=== PATIENT | male | born 1985 | race American Indian/Alaskan Native ===

== ENCOUNTER 2017-07-06 11:54 | Inpatient (IN) | payer MEDICAID ==
[2017-07-06 13:56] LABS: Hematocrit 42.3 % (35.5-45.6); Hemoglobin 13.9 gm/dl (11.8-15.2); Mean Corpuscular HGB Conc 33 % (32-34); Mean Corpuscular Hemoglobin 29 pg (28-32); Mean Corpuscular Volume 89 fl (84-94); Platelet Count 193 K/mm3 (140-440); Red Blood Count 4.74 M/mm3 (3.65-5.03); Red Cell Distribution Width 13.1 % (13.2-15.2)
[2017-07-06 14:04] LABS: White Blood Count 1.8 K/mm3 (4.5-11.0)
[2017-07-06 14:06] LABS: Anion Gap 18 mmol/L; BUN/Creatinine Ratio 13.07; Blood Urea Nitrogen 17 mg/dL (9-20); Calcium 8.5 mg/dL (8.4-10.2); Carbon Dioxide 26 mmol/L (22-30); Chloride 102.7 mmol/L (98-107); Creatine Kinase 65 units/L (55-170); Glucose 77 mg/dL (75-100); Potassium 4.6 mmol/L (3.6-5.0); Sodium 142 mmol/L (137-145)
[2017-07-06 14:54] LABS: Basophils % (Manual) 0 % (0.0-1.8); Blastocytes % (Manual) 0 %
[2017-07-06 14:55] LABS: Diff Status Complete; RBC Morphology Normal
--- NOTE | 2017-07-06 15:38 | XRay Report ---
Bilateral tib/fib: Swelling. Routine views demonstrate mild subcutaneous swelling of the posterior calf and distal leg bilaterally. Soft tissues are not otherwise remarkable. The bones and joints are unremarkable Impression: Nonspecific bilateral mild leg edema.
--- NOTE | 2017-07-06 16:25 | History and Physical Report ---
History of Present Illness Chief complaint: My leg is red History of present illness: 32 YO Male with AIDS, HTN, Bipolar, Anxiety, Depression, presents to ED for evaluation. Pt states that he has experienced worsening swelling and redness to both legs for the past 4 days with worsening pain over the past 12 hours. Pt denies fever, chills, CP, Palpitations, NVD, syncope, recent ill contacts, medication noncompliance, prolonged immobility/travel, individual/family history of DVT/PE. Past History Past Medical History: HIV/AIDS, hypertension Past Surgical History: No surgical history, Other (reviewed) Social history: single. denies: smoking, alcohol abuse, prescription drug abuse , IV drug use Family history: hypertension Medications and Allergies Allergies Allergy/AdvReac Type Severity Reaction Status Date / Time No Known Allergies Allergy Verified 07/06/17 12:35 Review of Systems Constitutional: no weight loss, no weight gain, no sweats, no night sweats Ears, nose, mouth and throat: no deferred, no ear pain Cardiovascular: no chest pain, no orthopnea, no palpitations Respiratory: no cough, no cough with sputum, no excessive sputum Gastrointestinal: no abdominal pain, no nausea, no vomiting Genitourinary Male: no dysuria, no hematuria, no flank pain, no discharge Rectal: no pain, no incontinence, no bleeding Musculoskeletal: no neck stiffness, no neck pain, no shooting arm pain Integumentary: redness, no rash, no pruritis Neurological: no head injury, no transient paralysis, no paralysis, no weakness Psychiatric: no anxiety, no memory loss, no change in sleep habits, no sleep disturbances Endocrine: no cold intolerance, no heat intolerance, no excessive thirst, no polyuria Hematologic/Lymphatic: no easy bruising, no easy bleeding Allergic/Immunologic: no urticaria, no allergic rhinitis, no wheezing Exam - Constitutional Vitals: Temp Pulse Resp BP Pulse Ox 98.2 F 93 H 18 111/70 100 07/06/17 12:35 07/06/17 12:35 07/06/17 12:35 07/06/17 12:35 07/06/17 12:35 General appearance: Present: mild distress - EENT Eyes: Present: PERRL ENT: hearing intact, clear oral mucosa - Neck Neck: Present: supple, normal ROM - Respiratory Respiratory effort: normal Respiratory: bilateral: CTA - Cardiovascular Heart Sounds: Present: S1 & S2. Absent: rub, click - Extremities Extremities: pulses symmetrical, No edema Extremity abnormal: edema, erythema (BLE erythema, 3+ edema ble, ) Peripheral Pulses: within normal limits - Abdominal General gastrointestinal: Present: soft, non-tender, non-distended, normal bowel sounds Male genitourinary: Present: normal - Integumentary Integumentary: Present: clear, warm, dry - Musculoskeletal Musculoskeletal: gait normal, strength equal bilaterally - Psychiatric Psychiatric: appropriate mood/affect, intact judgment & insight - Neurologic Neurologic: CNII-XII intact, moves all extremities Results - Labs CBC & Chem 7: 07/06/17 13:28 07/06/17 13:28 Labs: Abnormal lab results 07/06/17 Range/Units 13:28 WBC 1.8 L* (4.5-11.0) K/mm3 RDW 13.1 L (13.2-15.2) % Lymphocytes % (Manual) 39.0 H (13.4-35.0) % Seg Neutrophils # Man 1.0 L (1.8-7.7) K/mm3 Lymphocytes # (Manual) 0.7 L (1.2-5.4) K/mm3 Assessment and Plan - Patient Problems (1) Cellulitis Current Visit: Yes Status: Acute Qualifiers: Site of cellulitis: other site Site of cellulitis of extremity: S Site of cellulitis of trunk: S Laterality: L Qualified Code(s): L03.818 - Cellulitis of other sites Plan to address problem: Bilateral Lower Extremity cellulitis: IV abx, supportive care, elevation of BLE , BLE duplex. (2) AIDS Current Visit: Yes Status: Acute Plan to address problem: Resume home medication, supportive care, outpatient ID f/u (3) HTN (hypertension) Current Visit: Yes Status: Acute Qualifiers: Hypertension type: H Plan to address problem: monitor bp q shift, resume home medication (4) Bilateral lower extremity edema Current Visit: Yes Status: Acute Plan to address problem: limb elevation, suportive care, treat cellulitis (5) DVT prophylaxis Current Visit: Yes Status: Acute
--- NOTE | 2017-07-06 16:43 | Emergency Department Report ---
ED Extremity Problem HPI - General Chief complaint: Extremity Problem,Nontraumatic Stated complaint: CELLULITIS Time Seen by Provider: 07/06/17 14:17 Source: patient Mode of arrival: Ambulatory Limitations: No Limitations - History of Present Illness Initial comments: 32M PMH HIV+ unknown cd4, viral load p/w c/o worsening swelling and redness to b /l LE. states he was treated at [facility] for LE cellulitis and discharged within the last week. States he was taking clindamycin but did no notice improvement in symptoms. MD Complaint: extremity pain, extremity swelling Onset/Timin -: week(s) Location: left, right, lower extremity, bilateral lower extremity History of Same: No Severity scale (0 -10): 5 Quality: aching Consistency: intermittent Worsens with: weight bearing - Related Data Allergies Allergy/AdvReac Type Severity Reaction Status Date / Time No Known Allergies Allergy Verified 07/06/17 12:35 ED Review of Systems ROS: Stated complaint: CELLULITIS Other details as noted in HPI Constitutional: denies: chills, fever Eyes: denies: eye pain, eye discharge, vision change ENT: denies: ear pain, throat pain Respiratory: denies: cough, shortness of breath, wheezing Cardiovascular: denies: chest pain, palpitations Endocrine: no symptoms reported Gastrointestinal: denies: abdominal pain, nausea, diarrhea Genitourinary: denies: urgency, dysuria Musculoskeletal: as per HPI, joint swelling. denies: back pain, arthralgia Skin: denies: rash, lesions Neurological: denies: headache, weakness, paresthesias Psychiatric: denies: anxiety, depression Hematological/Lymphatic: denies: easy bleeding, easy bruising ED Past Medical Hx - Past Medical History Previous Medical History?: Yes Hx Hypertension: Yes Hx Psychiatric Treatment: Yes (Substance abuse ETOH, cocain, bipolar, anxiety, depression) Additional medical history: HIV - Surgical History Past Surgical History?: No - Social History Smoking Status: Current Every Day Smoker Substance Use Type: None ED Physical Exam - General Limitations: No Limitations General appearance: alert, in no apparent distress - Head Head exam: Present: atraumatic, normocephalic - Eye Eye exam: Present: normal appearance, PERRL, EOMI - ENT ENT exam: Present: mucous membranes moist - Neck Neck exam: Present: normal inspection - Respiratory Respiratory exam: Present: normal lung sounds bilaterally. Absent: respiratory distress - Cardiovascular Cardiovascular Exam: Present: regular rate, normal rhythm. Absent: systolic murmur, diastolic murmur, rubs, gallop - GI/Abdominal GI/Abdominal exam: Present: soft, normal bowel sounds - Rectal Rectal exam: Present: deferred - Extremities Exam Extremities exam: Present: tenderness, pedal edema (b/l LE edema to b/l knee region +3 edema, some surrounding cellulitis up to ankles), other (disal dorsalis pedic pulses intact b/l) - Back Exam Back exam: Present: normal inspection - Neurological Exam Neurological exam: Present: alert, oriented X3, CN II-XII intact, normal gait - Psychiatric Psychiatric exam: Present: normal affect, normal mood - Skin Skin exam: Present: warm, dry, intact, normal color. Absent: rash ED Course Vital Signs 07/06/17 12:35 Temperature 98.2 F Pulse Rate 93 H Respiratory 18 Rate Blood Pressure 111/70 O2 Sat by Pulse 100 Oximetry ED Medical Decision Making - Lab Data Result diagrams: 07/06/17 13:28 07/06/17 13:28 - Medical Decision Making a/p: b/l peripheral edema vs cellulitis 1- case d/w Dr. valenzuela and hospitalist Dr. Kohler 2- pt does not know his CD4 or viral load, WBC 1.8 3- pt to be admitted for further treatment and management Critical care attestation.: If time is entered above; I have spent that time in minutes in the direct care of this critically ill patient, excluding procedure time. ED Disposition Clinical Impression: Bilateral lower extremity edema Cellulitis Qualifiers: Site of cellulitis: unspecified site Qualified Code(s): L03.90 - Cellulitis, unspecified Disposition: OP ADMIT IP TO THIS HOSP Is pt being admited?: No Does the pt Need Aspirin: No Condition: Stable Referrals: PRIMARY CARE,MD [Primary Care Provider] - 3-5 Days
[2017-07-06] MEDS ORDERED: MORPHINE IV ONE (16:47)
[2017-07-06] MEDS ORDERED: MILK OF MAGNESIA PO PRN (17:07)
[2017-07-06] MEDS ORDERED: ZOFRAN IV PRN (17:07)
[2017-07-06] MEDS ORDERED: PROVENTIL IH PRN (17:07)
[2017-07-06] MEDS ORDERED: DULCOLAX PR PRN (17:07)
[2017-07-06] MEDS ORDERED: TYLENOL PO PRN (17:07)
[2017-07-06] MEDS ORDERED: VANCOMYCIN/NS 1 GM/250 ML 1 GM/250 ML BAG IV ONE (17:12)
[2017-07-06] MEDS ORDERED: APRESOLINE IV PRN (22:05)
[2017-07-06] MEDS ORDERED: REMERON PO ONE (23:15)
[2017-07-07] MEDS: PERCOCET 5/325 PO PRN ×3 (04:20→21:47)
--- NOTE | 2017-07-07 09:10 | Progress Note ---
Assessment and Plan Assessment and plan: Left lower extremity cellulitis. Continue IV antibiotics. ID consultation. HIV/AIDS. Continue home medications. Supportive care. Hypertension. Continue antihypertensive medications. DVT prophylaxis. Lovenox daily. History Interval history: No new issues overnight. Hospitalist Physical - Constitutional Vitals: Temp Pulse Resp BP Pulse Ox 99.1 F 84 18 109/70 99 07/07/17 08:00 07/07/17 08:00 07/07/17 08:00 07/07/17 08:00 07/07/17 08:28 General appearance: Present: no acute distress - EENT Eyes: Present: PERRL, EOM intact ENT: hearing intact, clear oral mucosa, dentition normal - Neck Neck: Present: supple, normal ROM - Respiratory Respiratory effort: normal Respiratory: bilateral: CTA - Cardiovascular Rhythm: regular Heart Sounds: Present: S1 & S2. Absent: gallop, rub - Extremities Extremities: no ischemia, No edema, Full ROM - Abdominal General gastrointestinal: soft, non-tender, non-distended, normal bowel sounds - Integumentary Integumentary: Present: clear, warm, dry - Neurologic Neurologic: CNII-XII intact, moves all extremities Results - Labs CBC & Chem 7: 07/06/17 13:28 07/06/17 13:28 Labs: Laboratory Last Values WBC 1.8 K/mm3 (4.5-11.0) L* 07/06/17 13:28 RBC 4.74 M/mm3 (3.65-5.03) 07/06/17 13:28 Hgb 13.9 gm/dl (11.8-15.2) 07/06/17 13:28 Hct 42.3 % (35.5-45.6) 07/06/17 13:28 MCV 89 fl (84-94) 07/06/17 13:28 MCH 29 pg (28-32) 07/06/17 13:28 MCHC 33 % (32-34) 07/06/17 13:28 RDW 13.1 % (13.2-15.2) L 07/06/17 13:28 Plt Count 193 K/mm3 (140-440) 07/06/17 13:28 Add Manual Diff Complete 07/06/17 13:28 Total Counted 100 07/06/17 13:28 Seg Neuts % (Manual) 54.0 % (40.0-70.0) 07/06/17 13:28 Band Neutrophils % 0 % 07/06/17 13:28 Lymphocytes % (Manual) 39.0 % (13.4-35.0) H 07/06/17 13:28 Reactive Lymphs % (Man) 0 % 07/06/17 13:28 Monocytes % (Manual) 5.0 % (0.0-7.3) 07/06/17 13:28 Eosinophils % (Manual) 2.0 % (0.0-4.3) 07/06/17 13:28 Basophils % (Manual) 0 % (0.0-1.8) 07/06/17 13:28 Metamyelocytes % 0 % 07/06/17 13:28 Myelocytes % 0 % 07/06/17 13:28 Promyelocytes % 0 % 07/06/17 13:28 Blast Cells % 0 % 07/06/17 13:28 Nucleated RBC % Not Reportable 07/06/17 13:28 Seg Neutrophils # Man 1.0 K/mm3 (1.8-7.7) L 07/06/17 13:28 Band Neutrophils # 0.0 K/mm3 07/06/17 13:28 Lymphocytes # (Manual) 0.7 K/mm3 (1.2-5.4) L 07/06/17 13:28 Abs React Lymphs (Man) 0.0 K/mm3 07/06/17 13:28 Monocytes # (Manual) 0.1 K/mm3 (0.0-0.8) 07/06/17 13:28 Eosinophils # (Manual) 0.0 K/mm3 (0.0-0.4) 07/06/17 13:28 Basophils # (Manual) 0.0 K/mm3 (0.0-0.1) 07/06/17 13:28 Metamyelocytes # 0.0 K/mm3 07/06/17 13:28 Myelocytes # 0.0 K/mm3 07/06/17 13:28 Promyelocytes # 0.0 K/mm3 07/06/17 13:28 Blast Cells # 0.0 K/mm3 07/06/17 13:28 WBC Morphology Not Reportable 07/06/17 13:28 Hypersegmented Neuts Not Reportable 07/06/17 13:28 Hyposegmented Neuts Not Reportable 07/06/17 13:28 Hypogranular Neuts Not Reportable 07/06/17 13:28 Smudge Cells Not Reportable 07/06/17 13:28 Toxic Granulation Not Reportable 07/06/17 13:28 Toxic Vacuolation Not Reportable 07/06/17 13:28 Dohle Bodies Not Reportable 07/06/17 13:28 Pelger-Huet Anomaly Not Reportable 07/06/17 13:28 Miguel Rods Not Reportable 07/06/17 13:28 Platelet Estimate Not Reportable 07/06/17 13:28 Clumped Platelets Not Reportable 07/06/17 13:28 Plt Clumps, EDTA Not Reportable 07/06/17 13:28 Large Platelets Not Reportable 07/06/17 13:28 Giant Platelets Not Reportable 07/06/17 13:28 Platelet Satelliting Not Reportable 07/06/17 13:28 Plt Morphology Comment Not Reportable 07/06/17 13:28 RBC Morphology Normal 07/06/17 13:28 Dimorphic RBCs Not Reportable 07/06/17 13:28 Polychromasia Not Reportable 07/06/17 13:28 Hypochromasia Not Reportable 07/06/17 13:28 Poikilocytosis Not Reportable 07/06/17 13:28 Anisocytosis Not Reportable 07/06/17 13:28 Microcytosis Not Reportable 07/06/17 13:28 Macrocytosis Not Reportable 07/06/17 13:28 Spherocytes Not Reportable 07/06/17 13:28 Pappenheimer Bodies Not Reportable 07/06/17 13:28 Sickle Cells Not Reportable 07/06/17 13:28 Target Cells Not Reportable 07/06/17 13:28 Tear Drop Cells Not Reportable 07/06/17 13:28 Ovalocytes Not Reportable 07/06/17 13:28 Helmet Cells Not Reportable 07/06/17 13:28 Bryant-Dunstan Bodies Not Reportable 07/06/17 13:28 [place] Rings Not Reportable 07/06/17 13:28 [place] Cells Not Reportable 07/06/17 13:28 Bite Cells Not Reportable 07/06/17 13:28 Crenated Cell Not Reportable 07/06/17 13:28 Elliptocytes Not Reportable 07/06/17 13:28 Acanthocytes (Spur) Not Reportable 07/06/17 13:28 Rouleaux Not Reportable 07/06/17 13:28 Hemoglobin C Crystals Not Reportable 07/06/17 13:28 Schistocytes Not Reportable 07/06/17 13:28 Malaria parasites Not Reportable 07/06/17 13:28 Yves Bodies Not Reportable 07/06/17 13:28 Hem Pathologist Commnt No 07/06/17 13:28 Sodium 142 mmol/L (137-145) 07/06/17 13:28 Potassium 4.6 mmol/L (3.6-5.0) 07/06/17 13:28 Chloride 102.7 mmol/L (98-107) 07/06/17 13:28 Carbon Dioxide 26 mmol/L (22-30) 07/06/17 13:28 Anion Gap 18 mmol/L 07/06/17 13:28 BUN 17 mg/dL (9-20) 07/06/17 13:28 Creatinine 1.3 mg/dL (0.8-1.5) 07/06/17 13:28 Estimated GFR > 60 ml/min 07/06/17 13:28 BUN/Creatinine Ratio 13.07 % 07/06/17 13:28 Glucose 77 mg/dL (75-100) 07/06/17 13:28 Lactic Acid 0.70 mmol/L (0.7-2.0) 07/06/17 13:28 Calcium 8.5 mg/dL (8.4-10.2) 07/06/17 13:28 Total Creatine Kinase 65 units/L (55-170) 07/06/17 13:28
[2017-07-07] MEDS: VISTARIL PO SCH ×2 (12:42→21:41)
--- NOTE | 2017-07-07 13:12 | Consultation ---
History of Present Illness - Reason for Consult Consult date: 07/07/17 bilateral leg cellulitis Requesting physician: NATHAN CRUMP - History of Present Illness This is a 32 year-old male with history of HTN, Bipolar disorder, cocaine/ETOH abuse and AIDS diagnosed in 2011, unknown CD4/VL, follows with Dr Jack in [facility] currently on prezcobix and descovy admitted on 07/06/2017 due to 7-day history of progressive bilateral lower extremity edema and erythema. Denies any recent trauma or injury. Denies any recent fever or chills no nausea vomiting or diarrhea. Denies history of renal or cardiac failure. Patient was off his ART for 6 months. He was seen at his HIV clinic and was started on new ART- prezcobix and descovy 4 weeks ago. Also, he was recently started on amlodipine for his BP. He recalls a previous history of leg edema on amlodipine in the past. Of note he was recently admitted into inpatient rehabilitation for cocaine and alcohol. He is today for 28 days. His last alcohol drink was on June 14. Current Antimicrobials: Descovy Prezcovix Previous Antimicrobials: Vancomycin Microbiology: Blood cultures: 07/06 ngtd Urine cultures: Respiratory cultures: Wound cultures: Stool cultures: Other: Past History Past Medical History: HIV/AIDS, hypertension Past Surgical History: No surgical history, Other (reviewed) Social history: single. denies: smoking, alcohol abuse, prescription drug abuse , IV drug use Family history: hypertension Medications and Allergies Allergies Allergy/AdvReac Type Severity Reaction Status Date / Time No Known Allergies Allergy Verified 07/06/17 12:35 Home Medications Medication Instructions Recorded Confirmed Last Taken Type Amlodipine Besylate [Norvasc] 10 mg DAILY 07/06/17 07/06/17 07/06/17 08:00 History Emtricitabine/Tenofov Alafenam 200 mg PO DAILY 07/06/17 07/06/17 07/06/17 08:00 History [Descovy 200-25 mg Tablet] Mirtazapine [Remeron] 45 mg PO HS 07/06/17 07/06/17 07/05/17 22:00 History Prezcobix 800 mg-150 mg (Nf) 800 mg PO QAM 07/06/17 07/06/17 07/06/17 08:00 History hydrOXYzine PAMOATE 25 mg PO BID 07/06/17 07/06/17 07/06/17 08:00 History Active Meds: Active Medications Acetaminophen (Tylenol) 650 mg PO Q4H PRN PRN Reason: Pain MILD(1-3)/Fever >100.5/ZHAO Albuterol (Proventil) 2.5 mg IH Q4HRT PRN PRN Reason: Shortness Of Breath Amlodipine Besylate (Norvasc) 10 mg PO DAILY [facility] Bisacodyl (Dulcolax) 10 mg SC QDAY PRN PRN Reason: Constipation unrelieved by MOM Enoxaparin Sodium (Lovenox) 40 mg SUB-Q QDAY@2200 [facility] Hydralazine HCl (Apresoline) 5 mg IV Q6H PRN PRN Reason: Hypertension Hydroxyzine Pamoate (Vistaril) 25 mg PO BID [facility] Last Admin: 07/07/17 12:42 Dose: 25 mg Magnesium Hydroxide (Milk Of Magnesia) 30 ml PO Q4H PRN PRN Reason: Constipation Mirtazapine (Remeron) 45 mg PO QHS [facility] Miscellaneous Medication (Emtricitabine/Tenofov Alafenam [Descovy 200-25 Mg Tablet]) 200 mg PO DAILY [facility] Miscellaneous Medication (Prezcobix 800 Mg-150 Mg (Nf)) 800 mg PO QAM [facility] Ondansetron HCl (Zofran) 4 mg IV Q8H PRN PRN Reason: N/V unrelieved by Reglan Oxycodone/Acetaminophen (Percocet 5/325) 1 tab PO Q8H PRN PRN Reason: Pain , Severe (7-10) Last Admin: 07/07/17 12:48 Dose: 1 tab Review of Systems Constitutional: no weight loss, no fever, no chills, no anorexia Ears, nose, mouth and throat: no ear pain, no sinus pressure Cardiovascular: edema, no chest pain, no orthopnea, no shortness of breath Respiratory: no cough Gastrointestinal: no abdominal pain, no nausea, no vomiting, no diarrhea Genitourinary Male: no dysuria, no hematuria Rectal: no pain Integumentary: no rash Neurological: no weakness Psychiatric: anxiety, no suicidal ideation, no depression Physical Examination - Physical Exam Narrative exam: General appearance: Alert in NAD, conversant Eyes: anicteric sclerae, moist conjunctivae; no lid-lag; PERRLA HENT: Atraumatic; oropharynx clear with moist mucous membranes and no mucosal ulcerations/no oral thrush; normal hard and soft palate. Normal external ears. Neck: Trachea midline; supple, no thyromegaly or lymphadenopathy Lungs: CTA, with normal respiratory effort and no intercostal retractions CV: RRR, no murmurs Abdomen: Soft, non-tender; no masses or hepatosplenomegaly Extremities: + bilateral ankle edema with mild erythema and heat. No extremity lymphadenopathy Skin: Normal temperature, turgor and texture; no rash, ulcers or subcutaneous nodules Psych: Appropriate affect, alert and oriented to person, place and time. Neuro: alert and oriented x 3. Moving all extermities Lines: No CVL / PICC - Constitutional Vitals: Vital Signs Temp Pulse Resp BP Pulse Ox 99.1 F 84 18 109/70 99 07/07/17 08:00 07/07/17 08:00 07/07/17 08:00 07/07/17 08:00 07/07/17 08:28 Temperature -Last 24 Hours Temperature 99.1 F Temperature 98.5 F Temperature 98.4 F Temperature 98.8 F Results - Labs CBC & Chem 7: 07/06/17 13:28 07/06/17 13:28 - Imaging and Cardiology Venous US: report reviewed (no DVT) Assessment and Plan Assessment: 1) AIDS: unknown CD4/VL but patient was off ART for 6 months and was started on descovy and prezcovix 4 weeks ago. 2) Bilateral legs edema with stasis dermatitis, less likely cellulitis. Etiology ? amlodipine-started 4 weeks ago. Legs US negative for DVT. Pt had same presentation in the past when started on amlodipine 3) Neutropenia: probably from AIDS/HIV myelosuppression, Currently afebrile non- septic. Doubt disseminated MAC 4) HTN 5) Bipolar disorder 6) ETOH/cocaine/smoking abuse- just finished 28-day rehab Plan: -continue descovy and prezcobix -monitor for fever, if no fever in 24h ok to d/c home with HIV clinic f/u in 1- 2 weeks -check AFB blood cultures to r/o MAC in view of neutropenia -no need for systemic antibiotics at this point since legs edema is likely from amlodipine -leg elevation -consider changing amlodipine to a different family class -add bactrim DS 1 tab q day for PJP prophylaxis -add azithrmonycin 1600 mg q week for MAC prophylaxis -HIV clinic f/u in 1-[address] Crump for your consultation Carmen Tinoco MD Infectious Diseases Specialist [facility] ([facility]) M [phone] O [phone]
[2017-07-07] MEDS ORDERED: ZITHROMAX PO SCH (14:00)
[2017-07-07] MEDS: BACTRIM DS PO SCH (15:01)
[2017-07-07] MEDS ORDERED: HYDROXYZINE PAMOATE 25 MG PO SCH (22:00)
[2017-07-07] MEDS ORDERED: LOVENOX SUB-Q SCH (22:00)
[2017-07-07] MEDS ORDERED: NON-FORMULARY (Mirtazapine [Remeron] 45 MG) PO SCH (22:00)
[2017-07-07] MEDS ORDERED: REMERON PO SCH (22:00)
[2017-07-08] MEDS: PERCOCET 5/325 PO PRN (07:07)
[2017-07-08] MEDS: VISTARIL PO SCH (09:41)
[2017-07-08] MEDS: BACTRIM DS PO SCH (09:41)
[2017-07-08] MEDS ORDERED: EMTRICITABINE PO SCH (10:00)
[2017-07-08] MEDS ORDERED: PREZCOBIX PO SCH (10:00)
[2017-07-08] MEDS ORDERED: NORVASC PO SCH (10:00)
[2017-07-08] MEDS ORDERED: NON-FORMULARY (Amlodipine Besylate [Norvasc] 10 MG) PO SCH (10:00)
[2017-07-08] MEDS ORDERED: TENOFOV ALAFENAM PO SCH (10:00)
--- NOTE | 2017-07-08 10:11 | Admit Criteria Form ---
Admission Criteria Documentation: CELLULITIS Clinical Indications for Admission to Inpatient Care ([place]/check or initial the applicable condition/criteria) Admission is indicated for ANY ONE of the following(1)(2)(3)(4)(5): [ ]I. Limb-threatening infection [ X]II. High-risk comorbid condition as indicated by ANY ONE of the following: [ ]a) Uncontrolled diabetes (eg, HbA1c greater than 10% (0.1)) [ ]b) Cirrhosis [ ]c) Neutropenia [ ]d) Asplenia(12) [X]e) Immunosuppression [ ]f) Symptomatic heart failure [ ]III. Failure of outpatient therapy as indicated by ALL of the following(6): [ ]a) Progression or no improvement after adequate trial (minimum of 48 hours, with longer period for stable lower extremity infection) [ ]b) Adequate antibiotic regimen as indicated by use of ANY ONE of the following: [ ]i) First-generation cephalosporin (e.g., cephalexin) [ ]ii) Antistaphylococcal penicillin (e.g., dicloxacillin) [ ]iii) Penicillin-allergic patient regimen (clindamycin, extended-spectrum fluoroquinolone, or doxycycline) [ ]iv) Resistant organism (eg, methicillin-resistant Staphylococcus aureus) regimen (7)(8) [ ]c) Outpatient intravenous therapy regimen is not appropriate due to ANY ONE of the following. (9)(10) [ ]i) It was tried and was not successful (eg, progression of infection). [ ]ii) It is not available or cannot be arranged in a clinically appropriate time frame (e.g., the next day). [ ]iii) Clinical presentation (eg, acuity of infection, rapidity of progression, confirmed or suspected bacteremia) is judged to require ALL of the following: [ ]1) Immediate initiation of intravenous therapy ( eg, cannot wait for next day) [ ]2) Intensity of patient monitoring and observation (eg, vital sign measurement, checks for infection progression) that cannot be provided at other than inpatient level of care [ ]IV. Altered Mental status that is severe or persistent [ ]V. Bacteremia [ ]. Hemodynamic instability [ ]VII. Suspected necrotizing soft tissue infection (e.g., gas in tissue)(13)( 14)(15) [ ]VIII. Orbital infection (16)(17) [ ]XI. Associated surgical procedure (e.g., abscess drainage, debridement) not amenable to outpatient, emergency department, or observation care [ ]X. Cutaneous gangrene(19) [ ]XII. High fever (temperature greater than 39.5 degrees C (103.1 degrees F) (oral)) not responsive to outpatient, emergency department, or observation care therapy(20)(21) [ ]XIII. Inpatient admission required [A]rather than observation care (Also use Cellulitis: Observation Care as appropriate) because of ANY ONE of the following(22)(23): [ ]a) Periorbital or perineal infection that is severe or worsening [ ]b) Severe pain requiring acute inpatient management [ ]b) IV fluid to replace significant ongoing (e.g., for over 24 hours) losses (greater than 3 L/m2 per day) [ ]b) Compartment syndrome monitoring (24) [ ]b) Strict or protective (eg, laminar flow) isolation) [ ]b) Urgent debridement or skin grafting [ ]b) Bone or joint debridement [ ]b) Immediate inpatient surgery [ ]b) Other condition, treatment, or monitoring requiring inpatient admission Extended stay beyond goal length of stay may be needed for(18)(36)(37)(38)(39)( 40)(41) [ ]a) Necrotizing soft tissue infection or fasciitis(13)(42) [ ]b) Gram-negative infection [ ]c) Methicillin-resistant Staphylococcal aureus (MRSA) infection(7)(43) [ ]d) Peripheral venous insufficiency with cellulitis [ ]e) Extensive edema [ ]f) Sepsis or continued Hemodynamic instability [ ]g) Continued high fever or mental status change [ ]h) Bacteremia(43) [ ]i) Active serious comorbid conditions ( eg, heart failure, renal insufficiency) The original [employer] content created by [employer] has been revised. The portions of the content which have been revised are identified through the use of italic text or in bold, and [facility] has neither reviewed nor approved the modified material. All other unmodified content is copyright [email or web address] Please see references footnoted in the original [email or web address] edition 2017 Admission Criteria Met: Yes
--- NOTE | 2017-07-08 11:37 | Progress Note ---
Assessment and Plan Assessment: 1) AIDS: unknown CD4/VL; patient was off ART for 6 months and was started on descovy and prezcovix 4 weeks ago. 2) Bilateral legs edema with stasis dermatitis, less likely cellulitis. Etiology ? amlodipine-started 4 weeks ago. Legs US negative for DVT. 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 Currently afebrile, no tachycardia or hypotension. Doubt disseminated MAC 4) HTN 5) Bipolar disorder 6) ETOH/cocaine/smoking abuse- just finished 28-day rehab Plan: -continue descovy and prezcobix -f/u AFB blood cultures to r/o MAC in view of neutropenia -no need for systemic antibiotics at this point since legs edema is likely from amlodipine -leg elevation -consider changing amlodipine to a different family class -continue bactrim DS 1 tab q day for PJP prophylaxis and azithrmonycin 1600 mg q week for MAC prophylaxis-give him 30 day-supply upon discharge -extensive education about HIV meds and clinic f/u compliance -HIV clinic f/u Dr Jack on 07/15 -OK to discharge home Thank you Dr Herrera for your consultation, will follow up with you. Carmen Tinoco MD Infectious Diseases Specialist [facility] M [phone] O [phone] Subjective Date of service: 07/08/17 Principal diagnosis: stasis dermatitis Interval history: Pt feels better, reports both legs edema has improved significantly. Denies fever, chills, N/V/D. Objective - Exam Narrative Exam: General appearance: Alert in NAD, conversant Eyes: anicteric sclerae, moist conjunctivae; no lid-lag; PERRLA HENT: Atraumatic; oropharynx clear with moist mucous membranes and no mucosal ulcerations/no oral thrush; normal hard and soft palate. Normal external ears. Neck: Trachea midline; supple, no thyromegaly or lymphadenopathy Lungs: CTA, with normal respiratory effort and no intercostal retractions CV: RRR, no murmurs Abdomen: Soft, non-tender; no masses or hepatosplenomegaly Extremities: + bilateral ankle edema with mild erythema and heat better today. No extremity lymphadenopathy Skin: Normal temperature, turgor and texture; no rash, ulcers or subcutaneous nodules Psych: Appropriate affect, alert and oriented to person, place and time. Neuro: alert and oriented x 3. Moving all extermities Lines: No CVL / PICC - Constitutional Vitals: Vital Signs Temp Pulse Resp BP Pulse Ox 98.6 F 80 20 126/88 95 07/08/17 07:00 07/08/17 07:00 07/08/17 07:00 07/08/17 07:00 07/08/17 07:00 Temperature -Last 24 Hours Temperature 98.6 F Temperature 98.9 F Temperature 98.6 F - Labs CBC & Chem 7: 07/06/17 13:28 07/06/17 13:28
[2017-07-08 17:38] VITALS: BP 116/69
== END 2017-07-08 18:00 | disposition home or self-care (01) | DRG 602 ==
LOC: ED 11:54 → 3A 17:08
PROVIDERS: ADMIT Internal Medicine; ATTEND Internal Medicine
DX: L03.90 Cellulitis, unspecified (principal); B20 Human immunodeficiency virus [HIV] disease; I10 Essential (primary) hypertension; F31.9 Bipolar disorder, unspecified; F41.9 Anxiety disorder, unspecified; F17.210 Nicotine dependence, cigarettes, uncomplicated; I87.2 Venous insufficiency (chronic) (peripheral); F14.10 Cocaine abuse, uncomplicated; F10.10 Alcohol abuse, uncomplicated; Z82.49 Family history of ischemic heart disease and other diseases of the circulatory system
CPT/HCPCS: 36415; 80048; 82140; 82550; 85007; 85025; 87040; 93970; 96374; 96375; 99285; 99406; J1650; J2270; J2405; J3370; Q0177